=== PATIENT | male | born 1945 | race American Indian/Alaskan Native ===

== ENCOUNTER 2019-06-23 12:55 | Emergency (ER) | payer MEDICARE ==
--- NOTE | 2019-06-23 13:37 | Emergency Department Report ---
Blank Doc - Documentation Documentation: 74-year-old male that presents with urinary incontinence and hematuria. This initial assessment/diagnostic orders/clinical plan/treatment(s) is/are subject to change based on patient's health status, clinical progression and re- assessment by fellow clinical providers in the ED. Further treatment and workup at subsequent clinical providers discretion. Patient/guardians urged not to elope from the ED as their condition may be serious if not clinically assessed and managed. Initial orders include: 1- Patient sent to MAIN ED for further evaluation and treatment 2- labs 3- UA
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
[2019-06-23 14:58] LABS: Color,Urine Red (Yellow)
[2019-06-23 15:19] LABS: Basophils % (Auto) 0.4 % (0.0-1.8); Eosinophils # (Auto) 0.2 K/mm3 (0.0-0.4); Eosinophils % (Auto) 3.3 % (0.0-4.3); Hematocrit 34.7 % (35.5-45.6); Hemoglobin 11.1 gm/dl (11.8-15.2); Lymphocytes # (Auto) 1.3 K/mm3 (1.2-5.4); Lymphocytes % (Auto) 20.5 % (13.4-35.0); Mean Corpuscular HGB Conc 32 % (32-34); Mean Corpuscular Volume 79 fl (84-94); Monocytes # (Auto) 0.5 K/mm3 (0.0-0.8); Monocytes % (Auto) 7.8 % (0.0-7.3); Platelet Count 272 K/mm3 (140-440); Red Blood Count 4.42 M/mm3 (3.65-5.03)
[2019-06-23 15:23] LABS: Mucus,Urine 3+ /HPF
[2019-06-23 15:28] LABS: Bilirubin,Urine TNR (Negative)
[2019-06-23 15:29] LABS: Blood,Urine TNR (Negative); PH,Urine TNR (5.0-7.0); Protein,Urine TNR mg/dL (Negative); Urobilinogen,Urine TNR mg/dL (<2.0)
[2019-06-23 15:30] LABS: Alanine Aminotransferase 10 units/L (7-56); BUN/Creatinine Ratio 12; Blood Urea Nitrogen 11 mg/dL (9-20); Calcium 9.2 mg/dL (8.4-10.2); Hemolysis Index 5
[2019-06-23 15:32] LABS: RBC,Urine > 182.0 /HPF (0.0-6.0); WBC,Urine > 182.0 /HPF (0.0-6.0)
[2019-06-23 15:45] LABS: INR 1.04 (0.87-1.13)
[2019-06-23 15:46] LABS: Partial Thromboplastin Time 25.5 Sec. (24.2-36.6)
[2019-06-23] MEDS ORDERED: levoFLOXacin 750 MG TAB PO ONE (15:56)
[2019-06-23 18:58] VITALS: BP 145/94
--- NOTE | 2019-06-23 19:10 | Cat Scan Report ---
CT ABDOMEN AND PELVIS WITHOUT IV CONTRAST INDICATION: Hematuria. COMPARISON: None available. TECHNIQUE: All CT scans at this facility use dose modulation, automated exposure control, iterative reconstructi on or weight based dosing, when appropriate, to reduce radiation dose to as low as reasonably achieva ble. FINDINGS: Lung Bases: No significant abnormality. Skeletal System: No acute abnormality. ABDOMEN: Liver: No significant abnormality. Gallbladder: There are 2 small gallstones. Bile Ducts: No significant abnormality. Pancreas: No significant abnormality. Spleen: No significant abnormality. Adrenals: No significant abnormality. Right Kidney: Multiple cysts. Left Kidney: Multiple cysts. Upper GI tract: No significant abnormality. Lymph Nodes: No significant adenopathy. Aorta: No significant abnormality. Additional Findings: Rectus diastases and small periumbilical ventral hernia are noted. Ventral herni a contains a few loops of small bowel. There is no bowel obstruction associated with this. PELVIS: Colon: No acute abnormality. Urinary Bladder and Distal Ureters: Lobulated hyperdensity is seen at the bladder base posteriorly. F oley catheter extends into the bladder in the region of lobulated hyperdensity. Appendix: No significant abnormality. Lymph Nodes: No significant adenopathy. Additional Findings: Prostate is enlarged. IMPRESSION: 1. Lobulated hyperdensity in the posterior inferior bladder lumen is concerning for mucosal lesion/n eoplasm. Hemorrhage/hematoma could have this appearance. Cystoscopy is recommended. Of note, only cat heter balloon is in the region of soft tissue density rather than in the true lumen of the bladder. C onsider advancing/repositioning this. 2. Prostate is markedly enlarged with mass effect on the bladder. 3. Additional, incidental findings as above. Signer Name: Kemal Escoto MD Signed: 06/23/2019 7:06 PM Workstation Name: [id number]
== END 2019-06-23 20:04 | disposition home or self-care (01) ==
LOC: ED 12:55
DX: N39.0 Urinary tract infection, site not specified (principal); R31.9 Hematuria, unspecified; N40.0 Benign prostatic hyperplasia without lower urinary tract symptoms; R97.20 Elevated prostate specific antigen [PSA]; N32.9 Bladder disorder, unspecified; I10 Essential (primary) hypertension; Z98.890 Other specified postprocedural states; Z79.899 Other long term (current) drug therapy
CPT/HCPCS: 36415; 74176; 80053; 81001; 84153; 85025; 85610; 85730; 87086

== ENCOUNTER 2020-09-14 22:35 | Emergency (ER) | payer MEDICARE ==
[2020-09-14] MEDS ORDERED: IBUPROFEN 600 MG TAB PO ONE (23:20)
[2020-09-14] MEDS ORDERED: ACETAMINOPHEN 500 MG TAB PO ONE (23:20)
[2020-09-14] MEDS ORDERED: cefTRIAXone/NS 2 GM/100 ML 2 GM/100 ML BAG IV ONE (23:23)
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
[2020-09-14 23:49] LABS: Basophils # (Auto) 0.1 K/mm3 (0.0-0.1); Basophils % (Auto) 0.5 % (0.0-1.8); Eosinophils # (Auto) 0.2 K/mm3 (0.0-0.4); Eosinophils % (Auto) 1.4 % (0.0-4.3); Hematocrit 31.8 % (35.5-45.6); Hemoglobin 10.4 gm/dl (11.8-15.2); Lymphocytes # (Auto) 1.2 K/mm3 (1.2-5.4); Lymphocytes % (Auto) 8.3 % (13.4-35.0); Mean Corpuscular HGB Conc 33 % (32-34); Mean Corpuscular Volume 78 fl (84-94); Monocytes % (Auto) 6.8 % (0.0-7.3); Platelet Count 422 K/mm3 (140-440); Red Blood Count 4.08 M/mm3 (3.65-5.03); Red Cell Distribution Width 17.1 % (13.2-15.2)
[2020-09-15 00:05] LABS: BUN/Creatinine Ratio 13; Blood Urea Nitrogen 14 mg/dL (9-20); Calcium 8.7 mg/dL (8.4-10.2); Hemolysis Index 3
[2020-09-15] MEDS ORDERED: SODIUM CHLORIDE 0.9% 1000 ML 1,000 ML IV ONE (00:46)
[2020-09-15 02:40] LABS: Bilirubin,Urine NEG (Negative); Blood,Urine LG (Negative); Color,Urine Yellow (Yellow)
[2020-09-15 02:41] LABS: RBC,Urine > 182.0 /HPF (0.0-6.0); WBC,Urine > 182.0 /HPF (0.0-6.0)
[2020-09-15 04:09] VITALS: BP 136/78
== END 2020-09-15 04:08 | disposition home or self-care (01) ==
LOC: ED 22:35
DX: N39.0 Urinary tract infection, site not specified (principal); N40.0 Benign prostatic hyperplasia without lower urinary tract symptoms; R33.9 Retention of urine, unspecified; R50.82 Postprocedural fever; I10 Essential (primary) hypertension; Z98.890 Other specified postprocedural states; Z79.84 Long term (current) use of oral hypoglycemic drugs; Z79.899 Other long term (current) drug therapy
CPT/HCPCS: 36415; 51702; 80048; 81001; 85025; 87076; 87086; 87186; 96365; 99283; J0696; J7030

== ENCOUNTER 2020-09-16 18:28 | Emergency (ER) | payer MEDICARE ==
--- NOTE | 2020-09-16 20:06 | Event Note ---
ED Screening Note ED Screening Note: pt states his catheter has been blocked by a blot clot in the catheter, he has not been able to empty urine since last night he states he has an appointment with his urologist tomorrow This initial assessment/diagnostic orders/clinical plan/treatment(s) is/are subject to change based on patients health status, clinical progression and re- assessment by fellow clinical providers in the ED. Further treatment and workup at subsequent clinical providers discretion. Patient/guardian urged not to elope from the ED as their condition may be serious if not clinically assessed and managed. Initial orders include: labs, urine
[2020-09-16 20:26] LABS: Basophils % (Auto) 0.3 % (0.0-1.8); Eosinophils # (Auto) 0.1 K/mm3 (0.0-0.4); Eosinophils % (Auto) 0.5 % (0.0-4.3); Hematocrit 35.9 % (35.5-45.6); Hemoglobin 11.1 gm/dl (11.8-15.2); Lymphocytes # (Auto) 1.3 K/mm3 (1.2-5.4); Lymphocytes % (Auto) 7.7 % (13.4-35.0); Mean Corpuscular HGB Conc 31 % (32-34); Mean Corpuscular Volume 79 fl (84-94); Monocytes % (Auto) 5.8 % (0.0-7.3); Platelet Count 465 K/mm3 (140-440); Red Blood Count 4.57 M/mm3 (3.65-5.03)
[2020-09-16] MEDS ORDERED: SODIUM CHLORIDE IRRI 500 ML 500 ML IR ONE (20:28)
[2020-09-16 20:37] LABS: INR 1.04 (0.87-1.13)
[2020-09-16] MEDS ORDERED: SODIUM CHLORIDE 0.9% IRR 500 ML BOTTLE IR ONE (20:45)
[2020-09-16 20:47] LABS: Alanine Aminotransferase 12 units/L (7-56); BUN/Creatinine Ratio 11; Blood Urea Nitrogen 12 mg/dL (9-20); Calcium 9.1 mg/dL (8.4-10.2); Hemolysis Index 69
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
[2020-09-16 21:16] LABS: Bilirubin,Urine NEG (Negative); Blood,Urine LG (Negative); Color,Urine Red (Yellow); Mucus,Urine 2+ /HPF; Urobilinogen,Urine < 2.0 mg/dL (<2.0)
[2020-09-16 21:18] LABS: RBC,Urine > 182.0 /HPF (0.0-6.0); WBC,Urine > 182.0 /HPF (0.0-6.0)
[2020-09-17 01:52] VITALS: BP 139/89
== END 2020-09-17 02:25 | disposition home or self-care (01) ==
LOC: ED 18:28
DX: T83.098A Other mechanical complication of other urinary catheter, initial encounter (principal); N39.0 Urinary tract infection, site not specified; R33.9 Retention of urine, unspecified; I10 Essential (primary) hypertension; Z98.890 Other specified postprocedural states; Z79.84 Long term (current) use of oral hypoglycemic drugs; Z79.899 Other long term (current) drug therapy; Y92.89 Other specified places as the place of occurrence of the external cause
CPT/HCPCS: 36415; 51702; 80053; 81001; 85025; 85610; 85730

== ENCOUNTER 2020-09-18 11:19 | Emergency (ER) | payer MEDICARE ==
--- NOTE | 2020-09-18 13:30 | Event Note ---
ED Screening Note Date of service: 09/18/20 Time: 13:27 ED Screening Note: Pt presents to ED with c/o alaniz catheter being block by a blood clot since yesterday evening because not much urine has been flowing into bag and he has been having bladder spasms He states he had prostate surgery for enlarged prostate in August by Dr Miguel. He denies any hx of prostate CA. He states since the surgery has been having gross hematuria and has been wearing a alaniz. He states he had alaniz changes 2 weeks a go. He did see his urologist yesterday and had it irrigated after which he states it was draining fine until yesterday evening. He is currently on bactrim UTI He states he is not on any blood thinners. This initial assessment/diagnostic orders/clinical plan/treatment(s) is/are subject to change based on patients health status, clinical progression and re- assessment by fellow clinical providers in the ED. Further treatment and workup at subsequent clinical providers discretion. Patient/guardian urged not to elope from the ED as their condition may be serious if not clinically assessed and m anaged. Initial orders include: Labs Alaniz irrigation
[2020-09-18 14:26] LABS: Basophils % (Auto) 0.3 % (0.0-1.8); Eosinophils # (Auto) 0.3 K/mm3 (0.0-0.4); Eosinophils % (Auto) 3.5 % (0.0-4.3); Hemoglobin 10.8 gm/dl (11.8-15.2); Lymphocytes # (Auto) 1.4 K/mm3 (1.2-5.4); Lymphocytes % (Auto) 15.9 % (13.4-35.0); Mean Corpuscular HGB Conc 33 % (32-34); Mean Corpuscular Volume 79 fl (84-94); Monocytes # (Auto) 0.6 K/mm3 (0.0-0.8); Monocytes % (Auto) 6.4 % (0.0-7.3); Platelet Count 445 K/mm3 (140-440); Red Blood Count 4.19 M/mm3 (3.65-5.03); Red Cell Distribution Width 16.5 % (13.2-15.2)
[2020-09-18 14:35] LABS: INR 1.04 (0.87-1.13)
[2020-09-18 14:47] LABS: Alanine Aminotransferase 10 units/L (7-56); BUN/Creatinine Ratio 12; Blood Urea Nitrogen 12 mg/dL (9-20); Hemolysis Index 1
[2020-09-18] MEDS ORDERED: SODIUM CHLORIDE 0.9% IRR 500 ML BOTTLE IR ONE (17:26)
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
[2020-09-18] MEDS ORDERED: SODIUM CHLORIDE 0.9% IRRIG SOLN 2000 ML IR SCH (19:00)
[2020-09-18] MEDS ORDERED: SODIUM CHLORIDE IRRI 500 ML 500 ML IR ONE (20:52)
[2020-09-18 22:16] VITALS: BP 145/78
== END 2020-09-18 22:16 | disposition home or self-care (01) ==
LOC: ED 11:19
DX: R31.9 Hematuria, unspecified (principal); R33.9 Retention of urine, unspecified; I10 Essential (primary) hypertension; Z98.890 Other specified postprocedural states; Z79.899 Other long term (current) drug therapy
CPT/HCPCS: 36415; 80053; 85025; 85610; 85730

== ENCOUNTER 2021-02-20 00:06 | Emergency (ER) | payer MEDICARE ==
[2021-02-20 01:19] VITALS: BP 136/93
[2021-02-20 01:32] LABS: Bacteria,Urine 4+ /HPF (Negative); Bilirubin,Urine NEG (Negative); Blood,Urine MOD (Negative); Color,Urine Yellow (Yellow); Hyaline Casts,Urine 8 /LPF; Urobilinogen,Urine < 2.0 mg/dL (<2.0)
[2021-02-20 01:53] LABS: WBC,Urine > 182.0 /HPF (0.0-6.0)
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
[2021-02-20] MEDS ORDERED: SULFAMETHOXAZOLE/TRIMETHOPRIM 800/160MG DS TAB PO ONE (02:28)
== END 2021-02-20 04:00 | disposition home or self-care (01) ==
LOC: ED 00:06
DX: R33.9 Retention of urine, unspecified (principal); R82.71 Bacteriuria; I10 Essential (primary) hypertension
CPT/HCPCS: 51702; 81001; 87086; 99283

== ENCOUNTER 2021-03-02 09:54 | Emergency (ER) | payer MEDICARE ==
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
[2021-03-02 13:28] VITALS: BP 125/81
== END 2021-03-02 14:05 | disposition home or self-care (01) ==
LOC: ED 09:54
DX: R33.9 Retention of urine, unspecified (principal); I10 Essential (primary) hypertension; Z79.899 Other long term (current) drug therapy
CPT/HCPCS: 51702; 99282; 99283

== ENCOUNTER 2021-12-13 16:25 | Emergency (ER) | payer MEDICARE ==
--- NOTE | 2021-12-13 17:53 | XRay Report ---
CHEST 1 VIEW 12/13/2021 4:43 PM INDICATION / CLINICAL INFORMATION: Lightheadedness/Dizziness. COMPARISON: One view of the chest from 08/14/2017. FINDINGS: SUPPORT DEVICES: None. HEART / MEDIASTINUM: The cardiac silhouette is mildly enlarged with aortic ectasia. LUNGS / PLEURA: Probable subsegmental atelectasis is seen along the right mid lung. The lungs are oth erwise clear. No significant pleural effusion. No pneumothorax. ADDITIONAL FINDINGS: No significant additional findings. IMPRESSION: Mild cardiomegaly with aortic ectasia. No other acute findings to explain the patient's complaints. Signer Name: Vladimir Arechiga MD Signed: 12/13/2021 5:49 PM Workstation Name: [id number]
[2021-12-13 18:05] LABS: Basophils % (Auto) 0.3 % (0.0-1.8); Eosinophils # (Auto) 0.2 K/mm3 (0.0-0.4); Hematocrit 39.3 % (35.5-45.6); Hemoglobin 12.8 gm/dl (11.8-15.2); Lymphocytes # (Auto) 1.5 K/mm3 (1.2-5.4); Lymphocytes % (Auto) 13.7 % (13.4-35.0); Mean Corpuscular HGB Conc 33 % (32-34); Mean Corpuscular Volume 79 fl (84-94); Monocytes # (Auto) 0.7 K/mm3 (0.0-0.8); Platelet Count 274 K/mm3 (140-440); Red Blood Count 5.01 M/mm3 (3.65-5.03); Red Cell Distribution Width 16.2 % (13.2-15.2)
[2021-12-13 18:12] LABS: INR 0.93 (0.87-1.13)
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
[2021-12-13 18:34] LABS: Alanine Aminotransferase 11 units/L (7-56); Albumin 4.8 g/dL (3.9-5); BUN/Creatinine Ratio 17; Blood Urea Nitrogen 17 mg/dL (9-20); Calcium 9.4 mg/dL (8.4-10.2); Hemolysis Index 3
[2021-12-13 20:45] VITALS: BP 132/89
--- NOTE | 2021-12-15 10:22 | Electrocardiograph Report ---
[facility] Test Date: 2021-12-13 Test Time: 16:52:06 Pat Name: JARRELL OSORIO Department: Room: Gender: M [employer]imedia Teacher: AF : 1945 Requested By: MARISSA JARAMILLO Order Number: [id number] Reading MD: Raúl Tavarez Measurements Intervals [place] Rate: 109 P: 46 NC: 169 QRS: -37 QRSD: 79 T: 64 QT: 322 QTc: 433 Interpretive Statements Sinus tachycardia Ventricular premature complex Probable left atrial enlargement Left axis deviation No previous ECG available for comparison Electronically Signed On 12-15-2021 10:21:53 EDT by Raúl Tavarez
== END 2021-12-13 20:46 | disposition home or self-care (01) ==
LOC: ED 16:25
DX: T83.091A Other mechanical complication of indwelling urethral catheter, initial encounter (principal); I10 Essential (primary) hypertension
CPT/HCPCS: 36415; 51702; 71045; 80053; 85025; 85610; 93005; 99284